=== PATIENT | female | born 1970 | race Caucasian/White ===

== ENCOUNTER → 2018-01-23 | Outpatient (CLI) | payer OTHER ==
--- NOTE | 2018-01-23 12:52 | XR ---
EXAMINATION TYPE: XR wrist complete LT DATE OF EXAM: 01/23/2018 COMPARISON: NONE HISTORY: CYST ON WRIST BASE OF 1ST METACARPAL CAUSING PAIN TECHNIQUE: Four views submitted. FINDINGS: The osseous structures are intact. There is deformity at the base of carpal. Soft tissue bony density is seen. Arthropathy of the first carpal metacarpal. IMPRESSION: 1. No definite acute fracture or dislocation if symptoms persist, follow-up study in 7 to 10 days wo uld be suggested. 2. 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 There is a soft tissue ossification adjacent to the base of fifth metacarpal.
== END | disposition home or self-care (01) ==
LOC: RADXRMAIN 12:22
PROVIDERS: ATTEND Family Medicine
DX: M18.12 Unilateral primary osteoarthritis of first carpometacarpal joint, left hand (principal)